=== PATIENT | female | born 1960 | race Caucasian/White ===

== ENCOUNTER → 2024-02-14 | Outpatient (CLI) | payer MEDICARE, OTHER ==
[~2024-02-14] MED LIST: BASE; CALCIUM CITRAT200 M2 PO; COD LIVER OIL1 EAC1 PO; FOLIC ACID1 MG PO; GLUCOSAMINE HC500 M1 PO; MAGNESIUM100 M1 PO; METHOTREXATE2.5 MG PO; NORCO 325 MG-51 TAB PO; PROBIOTIC1 EAC1 PO; TURMERIC500 M1 PO; VITAMIN D31250 MC1 PO
[2024-04-03 12:34] LABS: BASO # 0.01 K/mm3 (0.02-0.10); EOS # 0.04 K/mm3 (0.04-0.40); HEMATOCRIT 36.5 % (37.0-47.0); LYMPH# 1.21 K/mm3 (1.50-4.00); MEAN CELL VOLUME 94 fl (78-100); MEAN CORPUSCULAR HEMOGLOBIN 31 pg (27-31); MEAN CORPUSCULAR HGB CONC 33 g/dL (33-37); MEAN PLATELET VOLUME 10.5 fl (7.4-10.4); MONO # 0.33 K/mm3 (0.20-0.80); NEU # 2.59 K/mm3 (1.40-6.50); PLATELET COUNT 74 K/mm3 (130-400); RED BLOOD COUNT 3.89 M/mm3 (4.10-5.30); RED CELL DISTRIBUTION WIDTH 12.5 % (11.5-14.5); WHITE BLOOD COUNT 4.2 K/mm3 (4.8-10.8)
== END ==
LOC: LAB 11:00
DX: D69.6 Thrombocytopenia, unspecified (principal); R79.89 Other specified abnormal findings of blood chemistry; Z79.60 Long term (current) use of unspecified immunomodulators and immunosuppressants

== ENCOUNTER → 2024-02-28 | Outpatient (CLI) | payer MEDICARE, OTHER ==
[2024-02-28 11:32] LABS: BASO # 0.02 K/mm3 (0.02-0.10); EOS # 0.06 K/mm3 (0.04-0.40); EOS % 1.9 % (1.0-5.0); HEMATOCRIT 43.4 % (37.0-47.0); HEMOGLOBIN 14.3 g/dL (12.5-16.0); MEAN CELL VOLUME 95 fl (78-100); MEAN CORPUSCULAR HEMOGLOBIN 31 pg (27-31); MEAN CORPUSCULAR HGB CONC 33 g/dL (33-37); MEAN PLATELET VOLUME 10.8 fl (7.4-10.4); MONO # 0.33 K/mm3 (0.20-0.80); NEU # 1.69 K/mm3 (1.40-6.50); PLATELET COUNT 161 K/mm3 (130-400); RED BLOOD COUNT 4.59 M/mm3 (4.10-5.30); RED CELL DISTRIBUTION WIDTH 12.9 % (11.5-14.5); WHITE BLOOD COUNT 3.2 K/mm3 (4.8-10.8)
[2024-02-28 11:35] LABS: ALBUMIN 4.5 g/dL (3.4-4.8)
[2024-02-28 11:36] LABS: CALCIUM 9.6 mg/dL (8.3-10.5)
[2024-02-28 11:37] LABS: TOTAL PROTEIN 7.6 g/dL (6.2-8.1)
[2024-02-28 11:39] LABS: TOTAL BILIRUBIN 0.8 mg/dL (0.2-1.2)
== END ==
LOC: LAB 09:43
DX: D69.6 Thrombocytopenia, unspecified (principal); R79.89 Other specified abnormal findings of blood chemistry; Z79.60 Long term (current) use of unspecified immunomodulators and immunosuppressants

== ENCOUNTER → 2024-03-27 | Outpatient (CLI) | payer MEDICARE, OTHER ==
[~2024-03-27] VITALS: Ht 177.8 cm; Wt 63.0 kg
[~2024-03-27] MED LIST changes: +INFLIXIMAB DYYB IV ONE; +NS IV ONE
[2024-03-27 10:04] VITALS: BP 121/73
[2024-03-27 10:39] LABS: BASO # 0.01 K/mm3 (0.02-0.10); EOS # 0.07 K/mm3 (0.04-0.40); EOS % 1.9 % (1.0-5.0); HEMATOCRIT 40.6 % (37.0-47.0); HEMOGLOBIN 13.6 g/dL (12.5-16.0); LYMPH# 1.13 K/mm3 (1.50-4.00); MEAN CELL VOLUME 94 fl (78-100); MEAN CORPUSCULAR HEMOGLOBIN 32 pg (27-31); MEAN CORPUSCULAR HGB CONC 34 g/dL (33-37); MEAN PLATELET VOLUME 10.2 fl (7.4-10.4); MONO # 0.32 K/mm3 (0.20-0.80); NEU # 2.23 K/mm3 (1.40-6.50); PLATELET COUNT 155 K/mm3 (130-400); RED BLOOD COUNT 4.32 M/mm3 (4.10-5.30); RED CELL DISTRIBUTION WIDTH 12.9 % (11.5-14.5); WHITE BLOOD COUNT 3.8 K/mm3 (4.8-10.8)
[2024-03-27 11:06] LABS: ALBUMIN 4.2 g/dL (3.4-4.8)
[2024-03-27 11:07] LABS: CALCIUM 9.7 mg/dL (8.3-10.5)
[2024-03-27 11:08] LABS: TOTAL PROTEIN 6.9 g/dL (6.2-8.1)
[2024-03-27 11:10] LABS: TOTAL BILIRUBIN 0.5 mg/dL (0.2-1.2)
[2024-03-27 11:30] VITALS: BP 113/67
[2024-03-27 12:00] VITALS: BP 118/67
[2024-03-27 12:30] VITALS: BP 124/53
[2024-03-27 13:00] VITALS: BP 135/67
== END ==
LOC: AMSURD 03-12 00:06 → EDSTATUS 03-12 09:44 → AMSURD 09:49
DX: D69.6 Thrombocytopenia, unspecified (principal); R79.89 Other specified abnormal findings of blood chemistry; Z79.60 Long term (current) use of unspecified immunomodulators and immunosuppressants
CPT/HCPCS: J7050; Q5103

== ENCOUNTER → 2024-08-02 | Outpatient (CLI) | payer MEDICARE, OTHER ==
[~2024-08-02] MED LIST changes: +INFLECTRA100 MG IV; -INFLIXIMAB DYYB IV ONE; -NS IV ONE
[2024-08-02 11:50] LABS: BASO # 0.01 K/mm3 (0.02-0.10); EOS # 0.02 K/mm3 (0.04-0.40); EOS % 0.5 % (1.0-5.0); HEMOGLOBIN 14.2 g/dL (12.5-16.0); LYMPH# 1.25 K/mm3 (1.50-4.00); MEAN CELL VOLUME 95 fl (78-100); MEAN CORPUSCULAR HEMOGLOBIN 31 pg (27-31); MEAN CORPUSCULAR HGB CONC 33 g/dL (33-37); MEAN PLATELET VOLUME 10.1 fl (7.4-10.4); MONO # 0.39 K/mm3 (0.20-0.80); NEU # 2.09 K/mm3 (1.40-6.50); PLATELET COUNT 207 K/mm3 (130-400); RED BLOOD COUNT 4.53 M/mm3 (4.10-5.30); RED CELL DISTRIBUTION WIDTH 12.2 % (11.5-14.5); WHITE BLOOD COUNT 3.8 K/mm3 (4.8-10.8)
[2024-08-02 11:56] LABS: ALBUMIN 4.3 g/dL (3.4-4.8)
[2024-08-02 11:58] LABS: CALCIUM 9.4 mg/dL (8.3-10.5)
[2024-08-02 11:59] LABS: TOTAL PROTEIN 7.3 g/dL (6.2-8.1)
[2024-08-02 12:01] LABS: TOTAL BILIRUBIN 0.8 mg/dL (0.2-1.2)
== END ==
LOC: LAB 11:06
DX: D69.6 Thrombocytopenia, unspecified (principal); R79.89 Other specified abnormal findings of blood chemistry; Z79.60 Long term (current) use of unspecified immunomodulators and immunosuppressants

== ENCOUNTER → 2024-10-04 | Outpatient (CLI) | payer MEDICARE, OTHER ==
[~2024-10-04] VITALS: Ht 177.8 cm; Wt 63.1 kg
[~2024-10-04] MED LIST changes: +INFLIXIMAB DYYB IV ONE; +NS IV ONE
[2024-10-04 09:26] VITALS: BP 130/71
[2024-10-04 09:58] LABS: BASO # 0.03 K/mm3 (0.02-0.10); EOS # 0.06 K/mm3 (0.04-0.40); EOS % 1.6 % (1.0-5.0); HEMATOCRIT 46.2 % (37.0-47.0); LYMPH# 1.06 K/mm3 (1.50-4.00); MEAN CELL VOLUME 95 fl (78-100); MEAN CORPUSCULAR HEMOGLOBIN 31 pg (27-31); MEAN CORPUSCULAR HGB CONC 33 g/dL (33-37); MEAN PLATELET VOLUME 10.1 fl (7.4-10.4); NEU # 2.25 K/mm3 (1.40-6.50); PLATELET COUNT 188 K/mm3 (130-400); RED BLOOD COUNT 4.85 M/mm3 (4.10-5.30); RED CELL DISTRIBUTION WIDTH 12.7 % (11.5-14.5); WHITE BLOOD COUNT 3.7 K/mm3 (4.8-10.8)
[2024-10-04 10:02] LABS: ALBUMIN 4.4 g/dL (3.4-4.8)
[2024-10-04 10:04] LABS: CALCIUM 9.6 mg/dL (8.3-10.5)
[2024-10-04 10:05] LABS: TOTAL PROTEIN 8.2 g/dL (6.2-8.1)
[2024-10-04 10:07] LABS: TOTAL BILIRUBIN 0.7 mg/dL (0.2-1.2)
[2024-10-04 10:13] VITALS: BP 108/60
[2024-10-04 10:43] VITALS: BP 111/71
[2024-10-04 11:15] VITALS: BP 110/68
[2024-10-04 11:45] VITALS: BP 117/63
[2024-10-04 12:15] VITALS: BP 112/64
--- NOTE | 2024-10-04 12:34 | NUR ---
PT HERE FOR INFLECTRA INFUSION. VSS LIA WELL. APPT MADE TO RETURN FOR NEXT INFUSION IN 8 WEEKS (NOVEMBER 29)
== END ==
LOC: LAB 08:43 → AMSURD 08:43
DX: D69.6 Thrombocytopenia, unspecified (principal); R79.89 Other specified abnormal findings of blood chemistry; Z79.60 Long term (current) use of unspecified immunomodulators and immunosuppressants
CPT/HCPCS: J7050; Q5103

== ENCOUNTER → 2024-11-29 | Outpatient (CLI) | payer MEDICARE, OTHER ==
[~2024-11-29] VITALS: Ht 177.8 cm; Wt 63.1 kg
[~2024-11-29] MED LIST changes: -INFLIXIMAB DYYB IV ONE; +INFLIXIMAB DYYB IV SCH; -NS IV ONE; +NS IV SCH
[2024-11-29 09:02] VITALS: BP 134/81
[2024-11-29 09:30] VITALS: BP 117/73
[2024-11-29 09:39] LABS: BASO # 0.02 K/mm3 (0.02-0.10); EOS # 0.06 K/mm3 (0.04-0.40); EOS % 1.8 % (1.0-5.0); HEMATOCRIT 43.9 % (37.0-47.0); HEMOGLOBIN 14.3 g/dL (12.5-16.0); MEAN CELL VOLUME 96 fl (78-100); MEAN CORPUSCULAR HEMOGLOBIN 31 pg (27-31); MEAN CORPUSCULAR HGB CONC 33 g/dL (33-37); MEAN PLATELET VOLUME 10.6 fl (7.4-10.4); MONO # 0.36 K/mm3 (0.20-0.80); NEU # 1.81 K/mm3 (1.40-6.50); PLATELET COUNT 156 K/mm3 (130-400); RED BLOOD COUNT 4.58 M/mm3 (4.10-5.30); RED CELL DISTRIBUTION WIDTH 12.8 % (11.5-14.5); WHITE BLOOD COUNT 3.4 K/mm3 (4.8-10.8)
[2024-11-29 10:00] VITALS: BP 106/70
[2024-11-29 10:30] VITALS: BP 134/73
[2024-11-29 11:00] VITALS: BP 127/74
[2024-11-29 11:15] VITALS: BP 128/74
== END ==
LOC: AMSURD 08:40
PROVIDERS: Internal Medicine Rheumatology
DX: D69.6 Thrombocytopenia, unspecified (principal); Z79.60 Long term (current) use of unspecified immunomodulators and immunosuppressants
CPT/HCPCS: J7050; Q5103